=== PATIENT | female | born 1975 | race African-American/Black ===

== ENCOUNTER 2018-12-13 09:05 | Day surgery (SDC) | payer OTHER ==
[2018-12-13] VITALS (22 sets, daily range): BP systolic 112–174; BP diastolic 69–105; PULSE 71–84; RESP 13–24; Ht 160 cm; Wt 86.8 kg
[~2018-12-13] VITALS: Ht 160 cm; Wt 86.8 kg
[~2018-12-13 09:05] MED LIST: CEFAZOLIN 2 GM/50 ML (PMX) 50 ML IVPB ONE; DEXAMETHASONE 4 MG/ML 5 ML INJ ONE; SOD CHLORIDE 0.9% 1,000 ML IV SCH
[2018-12-13] MEDS ORDERED: LISI-471 PO (09:33)
[2018-12-13] MEDS ORDERED: PROPOFOL 20 ML ONE (11:03)
[2018-12-13] MEDS ORDERED: MIDAZOLAM 1 MG/ML 2 ML INJ ONE (11:03)
[2018-12-13] MEDS ORDERED: NEOSTIGMINE 3 MG/3 ML SYRINGE ONE (11:03)
[2018-12-13] MEDS ORDERED: ROCURONIUM 50 MG INJ ONE (11:03)
[2018-12-13] MEDS ORDERED: GLYCOPYRROLATE 0.4 MG INJ ONE (11:03)
[2018-12-13] MEDS ORDERED: ONDANSETRON 4 MG INJ ONE (11:03)
[2018-12-13] MEDS ORDERED: FENTAnyl 50 MCG/ML VIAL ONE (11:03)
[2018-12-13] MEDS ORDERED: CEFAZOLIN 1 GM INJ ONE (11:03)
[2018-12-13] MEDS ORDERED: ROPIVACAINE 0.5 % 30 ML VIAL ONE (11:03)
[2018-12-13] MEDS ORDERED: BUPIVACAINE 0.25% (MPF) 30 ML INJ ONE (11:31)
--- NOTE | 2018-12-13 11:48 | PREAC ---
Date/Time of Note Date/Time of Note DATE: 12/13/18 TIME: 11:47 Anesthesia Eval and Record Evaluation Time Pre-Procedure Interview DATE: 12/13/18 TIME: 11:47 Age 43 Sex female NPO: 8 hrs Preoperative diagnosis VENTRAL HERNIA Planned procedure LAP VENTRAL HERNIA REPAIR WITH MESH Past Medical History Past Medical History: Includes Cardio: HTN Pulm: Smoking Hx (RODRICK) GI: Obesity Recreational drugs: Marijuana Surgery & Anesthesia Issues No known issue (C SECTION X3) Meds Anticoagulation: No Beta Laron within 24 hr: No Reason Beta Laron not given: Pt. not on B-Laron Reported Medications Lisinopril* (Lisinopril*) 20 Mg Tablet, 20 MG PO DAILY, #30 TAB 12/13/18 Current Medications Sodium Chloride 1,000 ml @ 75 mls/hr [id number] IV Last administered on 12/13/18at 09:30; Admin Dose 75 MLS/HR; Start 12/13/18 at 08:00; Stop 12/13/18 at 21:19 Meds reviewed: Yes Allergies Coded Allergies: ibuprofen (Unverified Allergy, Unknown, 12/13/18) Allergies Reviewed: Yes Labs/Studies Labs Reviewed: Reviewed by anesthesiologist Result Diagram: 12/13/1855 12/13/18 0955 Laboratory Tests 12/13/18 09:55 test: Negative Pre-procedure Exam Last vitals Vital Signs Date Temp Pulse Resp B/P (MAP) Pulse Ox O2 O2 Flow FiO2 Time Delivery Rate 12/13/18 142/102 10:03 (115) 12/13/18 97.3 71 16 99 Room Air 09:10 Airway: Adequate mouth opening, Adequate thyromental dist Mallampati: Mallampati II Teeth: Normal Lung: Normal Heart: Normal ASA Physical Status ASA physical status: 2 Emergency: None Planned Anesthetic General/MAC: ETT Nerve block: TAP (bilateral) Planned Pain Management Single shot nerve block, Parenteral pain med Pre-operative Attestations Prior to commencing anesthesia and surgery, the patient was re-evaluated, there was verification of: *The patient's identity *The results of appropriate recent lab work and preoperative vital signs *The above evaluation not changing prior to induction *Anesthetic plan, risk benefits, alternative and complications discussed with patient/family; questions answered; patient/family understands, accepts and wishes to proceed. Jayden Smith M.D. Dec 13, 2018 11:48
[2018-12-13] MEDS ORDERED: LABETALOL HCL 20MG INJ IV PRN (12:00)
[2018-12-13] MEDS ORDERED: hydrALAzine 20 MG INJ IV PRN (12:00)
[2018-12-13] MEDS ORDERED: OXYCODONE/ACETAMINOPHEN (5/325) TAB PO PRN ×2 (12:00)
[2018-12-13] MEDS ORDERED: IPRATROPIUM (NEB) 0.5 MG/2.5 ML AMP HHN PRN (12:00)
[2018-12-13] MEDS ORDERED: EPHEDrine SULFATE 50 MG/5 ML SYG IV PRN (12:00)
[2018-12-13] MEDS ORDERED: MEPERIDINE 25 MG INJ IV PRN (12:00)
[2018-12-13] MEDS ORDERED: FENTAnyl 50 MCG/ML VIAL IV PRN ×2 (12:00)
[2018-12-13] MEDS ORDERED: DIPHENHYDRAMINE 50 MG INJ IV PRN (12:00)
[2018-12-13] MEDS ORDERED: ONDANSETRON 4 MG INJ IV PRN (12:00)
[2018-12-13] MEDS ORDERED: ALBUTEROL 0.083% (NEB) 2.5 MG/3 ML AMP HHN PRN (12:00)
[2018-12-13] MEDS ORDERED: TRIMETHOBENZAMIDE 100 MG/ML VIAL IM PRN (12:00)
[2018-12-13] MEDS ORDERED: MIDAZOLAM 1 MG/ML 2 ML INJ IV PRN (12:00)
[2018-12-13] MEDS ORDERED: HYDROmorphONE 1 MG/5 ML IV SYRINGE IV PRN ×2 (12:00)
[2018-12-13] MEDS ORDERED: hydrALAzine 20 MG INJ ONE (12:49)
[2018-12-13] MEDS ORDERED: SUGAMMADEX SODIUM 200 MG/2 ML VIAL IV ONE ×2 (12:56→13:01)
[2018-12-13] MEDS ORDERED: HYDROCODONE/APAP (5/325) TAB PO ONE (13:00)
[2018-12-13] MEDS ORDERED: KETOROLAC 30 MG INJ ONE (13:03)
--- NOTE | 2018-12-13 13:04 | OPR ---
Date/Time of Note Date/Time of Note DATE: 12/13/18 TIME: 13:00 Operative Report Procedure Date: Dec 13, 2018 Preoperative Diagnosis incarcerated ventral hernia Postoperative Diagnosis same Operation/Procedure Performed 1. laparoscopic incarcerated ventral hernia repair 2. implantation of 15 cm x 15 cm proceed mesh 3. laparoscopic lysis of adhesions Surgeon see signature line [employer] none Anesthesia Type: general Estimated Blood Loss: 0 - 10 ml's Transfusion none Specimen none Grafts/Implants none Complications none Pt Condition Post Procedure: stable Indications This is a 43-year-old female with symptomatic incarcerated ventral hernia. She required surgical repair. Risks alternatives benefits and percent were discussed the patient. Patient expressed understanding and consents to the operation. Procedure Description Patient is taken to the OR and prepped and draped in usual sterile fashion. Surgical time was performed. IV antibiotics given. Left upper quadrant 5 mm transverse incisions with a 15 blade. Using a 5 mm optical trocar optical entry is performed. Pneumoperitoneum is established. Left flank 12 mm optical trochars placed under direct visualization. Left lower quadrant 5 mm optical trochars were placed under direct physician. Upon initial inspection there is multiple adhesions to the anterior abdominal wall. Extensive lap scopic lysis of adhesions was performed to take down these adhesions. The hernia defect was identified with incarcerated contents. The incarcerated contents were reduced laparoscopically and extracted to the left flank port. This was discarded this was only 2 cm of fat onlay mesh with approximate 4-5 cm coverage was ensured. The hernia defect was identified and closed with an underlay mesh repair due to its small pinpoint opening. The proceed mesh was secured in place with secure strap. Good hemostasis was established in the surgical site. All ports were removed under direct position. Skin was closed using skin nelly. A tap block was provided by the anesthesiologist. Dry dressings were applied. Jorge Luis ALFARO Dec 13, 2018 13:04
--- NOTE | 2018-12-13 13:27 | PAC ---
Date/Time of Note Date/Time of Note DATE: 12/13/18 TIME: 13:26 Post-Anesthesia Notes Post-Anesthesia Note Last documented vital signs Vital Signs Date Temp Pulse Resp B/P (MAP) Pulse Ox O2 O2 Flow FiO2 Time Delivery Rate 12/13/18 142/102 10:03 (115) 12/13/18 97.3 71 16 99 Room Air 09:10 Activity: WNL Respiratory function: WNL Cardiovascular function: WNL Mental status: Baseline Pain reasonably controlled: Yes Hydration appropriate: Yes Nausea/Vomiting absent: Yes Jayden Smith M.D. Dec 13, 2018 13:27
[2018-12-13] MEDS: HYDROmorphONE 1 MG/5 ML IV SYRINGE IV PRN ×2 (13:49→14:03)
[2018-12-13] MEDS: FENTAnyl 50 MCG/ML VIAL IV PRN ×2 (13:53→14:03)
== END 2018-12-13 16:12 | disposition home or self-care (01) ==
LOC: SDS 09:05
PROVIDERS: ATTEND Surgery
DX: K43.6 Other and unspecified ventral hernia with obstruction, without gangrene (principal); I10 Essential (primary) hypertension; E66.9 Obesity, unspecified; Z87.891 Personal history of nicotine dependence
CPT/HCPCS: 49653; 80053; 85025; 85610; 85730; J0360; J0690; J1100; J1170; J2250; J2405; J2795; J3010; Z7512; Z7610; J1885; J2710